=== PATIENT | male | born 1960 | race Caucasian/White ===

== ENCOUNTER 2016-10-02 14:23 | Emergency (ER) | payer OTHER ==
[~2016-10-02] VITALS: Ht 188 cm; Wt 93.4 kg
[~2016-10-02 14:23] MED LIST: AMOXICILLIN500 MG PO; VICODIN5-300 PO
[2016-10-02 14:27] VITALS: BP 182/77
[2016-10-02] MEDS ORDERED: ULTRAM50 M1 PO (15:03)
[2016-10-02] MEDS ORDERED: OXYCODONE HCL5 M1 PO (15:03)
[2016-10-02] MEDS ORDERED: BACLOFEN10 M1 PO (15:03)
[2016-10-02] MEDS ORDERED: GABAPENTIN300 M2 PO (15:03)
--- NOTE | 2016-10-02 15:04 | ED GENERAL ADULT ---
History of Present Illness General Chief Complaint: General Adult Stated Complaint: CHRONIC PAIN ALL OVER Source: patient, old records Exam Limitations: no limitations Vital Signs & Intake/Output Vital Signs & Intake/Output Vital Signs Date Time Temp Pulse Resp B/P Pulse O2 O2 Flow FiO2 Ox Delivery Rate 10/02 1427 98.3 91 18 182/77 99 Room Air Allergies Coded Allergies: Sulfa (Sulfonamide Antibiotics) (Severe, RASH 10/02/16) acetaminophen (Severe, NAUSEA 10/02/16) aspirin (Mild, UPSET STOMACH 10/02/16) Reconcile Medications Baclofen 10 MG TABLET 1-2 TAB PO TID PRN muscle strain Gabapentin 300 MG CAPSULE 1 CAP PO TID chronic pain Oxycodone HCl 5 MG TABLET 1 TAB PO Q6PRN PRN severe pain Tramadol HCl (Ultram) 50 MG TABLET 1-2 TAB PO Q6PRN PRN moderate pain Triage Note: 56 Y/O MALE C/O PAIN "ALL OVER - MY NECK, MY BACK". STATES HE HAD A LAPSE OF INSURANCE AND HAS BEEN UNABLE TO GET PAIN MEDICATIONS. HAS NOT TAKEN ANY MEDICATIONS FOR PAIN TODAY. Triage Nurses Notes Reviewed? yes Onset: Last week Duration: week(s):, continues in ED, waxing and waning Timing: recent history Injury Environment: home Severity: severe Modifying Factors: Worsens With: movement. HPI: Patient has had chronic back pain for many years. He reports having increasing neck and low back pain described as sharp on her to severe waxing and waning worse with movement turning bending and episodic tingling in the fingers and feet. He denies fever chills nausea vomiting diarrhea abdominal pain chest pain shortness breath headache dysuria rash bleeding change in bowel bladder habit trauma. Past History Travel History Traveled to [place] past 21 day No Medical History Any Pertinent Medical History? 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 No Review of Systems Review of Systems Constitutional: Reports: no symptoms. EENTM: Reports: no symptoms. Respiratory: Reports: no symptoms. Cardiovascular: Reports: no symptoms. GI: Reports: no symptoms. Genitourinary: Reports: no symptoms. Musculoskeletal: Reports: see HPI, back pain, neck pain. Skin: Reports: no symptoms. Neurological/Psychological: Reports: no symptoms. Hematologic/Endocrine: Reports: no symptoms. Immunologic/Allergic: Reports: no symptoms. All Other Systems: Reviewed and Negative Physical Exam Physical Exam General Appearance: well developed/nourished, alert, awake, anxious, moderate distress Head: atraumatic, normal appearance Eyes: Bilateral: normal appearance, PERRL, EOMI. Ears, Nose, Throat: normal pharynx, normal ENT inspection Neck: normal inspection, supple, full range of motion, no midline tenderness Respiratory: normal breath sounds, chest non-tender, no respiratory distress, quiet respiration, lungs clear Cardiovascular: regular rate/rhythm, normal peripheral pulses, norml femoral pulses equa Peripheral Pulses: 4+ carotid (R), 4+ carotid (L), 2+ radial (R), 2+ radial (L) Gastrointestinal: normal bowel sounds, soft, non-tender, no organomegaly Back: normal inspection, decreased range of motion, no vertebral tenderness Extremities: normal inspection, normal capillary refill, normal range of motion, no edema Neurologic/Psych: no motor/sensory deficits, awake, alert, oriented x 3, normal gait, normal mood/affect, 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 Skin: intact, normal color, warm/dry Lymphatic: no anterior cervical john Core Measures ACS in differential dx? No CVA/TIA Diagnosis: No Severe Sepsis Present: No Septic Shock Present: No Progress Differential Diagnoses I considered the following diagnoses in my evaluation of the patient: Chronic pain syndrome Plan of Care: analgesia, muscle relaxant Initial ED EKG: none Departure Departure Time of Disposition: 1501 Disposition: HOME OR SELF CARE Condition: Stable Clinical Impression Primary Impression: Chronic pain syndrome Referrals: DANA SARAVIA APRN (PCP/Family) Departure Forms: Customer Survey General Discharge Information Prescriptions: Current Visit Scripts Baclofen 1-2 TAB PO TID PRN muscle strain #30 TAB Tramadol HCl (Ultram) 1-2 TAB PO Q6PRN PRN moderate pain #30 TAB Gabapentin 1 CAP PO TID #50 CAP Oxycodone HCl 1 TAB PO Q6PRN PRN severe pain #15 TAB Critical Care Note Critical Care Note Critical Care Time: non-applicable
== END 2016-10-02 15:20 ==
LOC: ERH 14:23
DX: G89.4 Chronic pain syndrome (principal)

== ENCOUNTER 2016-10-05 07:01 | Emergency (ER) | payer OTHER ==
[~2016-10-05] VITALS: Ht 188 cm; Wt 94.3 kg
[~2016-10-05 07:01] MED LIST changes: +BACLOFEN10 M1 PO; +GABAPENTIN300 M2 PO; +OXYCODONE HCL5 M1 PO; +ULTRAM50 M1 PO
[2016-10-05 07:13] VITALS: BP 167/96
--- NOTE | 2016-10-05 07:21 | ED GENERAL ADULT ---
History of Present Illness General Chief Complaint: Low Back Pain/Injury Stated Complaint: BACK AND NECK PAIN BEING SEEN BY [facility] 10/10/16 Source: patient Exam Limitations: no limitations Vital Signs & Intake/Output Vital Signs & Intake/Output Vital Signs Date Time Temp Pulse Resp B/P Pulse O2 O2 Flow FiO2 Ox Delivery Rate 10/05 0713 98.0 91 16 167/96 99 Room Air Allergies Coded Allergies: Sulfa (Sulfonamide Antibiotics) (Severe, RASH 10/02/16) acetaminophen (Severe, NAUSEA 10/02/16) aspirin (Mild, UPSET STOMACH 10/02/16) Reconcile Medications Baclofen 10 MG TABLET 1-2 TAB PO TID PRN muscle strain Gabapentin 300 MG CAPSULE 1 CAP PO TID chronic pain Oxycodone HCl 5 MG TABLET 1 TAB PO Q6PRN PRN severe pain Tramadol HCl (Ultram) 50 MG TABLET 1-2 TAB PO Q6PRN PRN moderate pain Triage Note: 56 Y/O MALE C/O BACK PAIN. WAS SEEN IN ED FOR SAME 10/02/16 AND STATES HE RAN OUT OF THE OXYCODONE AND THE OTHER MEDS AREN'T WORKING. UNABLE TO SEE PCP FOR ANOTHER WEEK Triage Nurses Notes Reviewed? yes Onset: Abrupt Duration: week(s): Timing: recent history HPI: 10/05/16 56-year-old male presents to the emergency department for exacerbation of low back pain. The patient states she has a history of chronic low back pain and is in the process of getting follow-up. He is currently taking nonsteroidals and baclofen with minimal relief. He is requesting a prescription renewal for his analgesics. The onset of the pain has been abrupt, the duration has been for years. The severity is significant as his symptoms required to come to the emergency department for care. He has no associated fever or abdominal pain or other complaints. No abdominal pain. Past History Travel History Traveled to [place] past 21 day No Medical History Any Pertinent Medical History? 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 No Review of Systems Review of Systems Constitutional: Denies: fever. EENTM: Denies: visual changes. Respiratory: Denies: short of breath. Cardiovascular: Denies: chest pain. GI: Denies: abdominal pain. Genitourinary: Denies: dysuria. Musculoskeletal: Reports: back pain, neck pain. Skin: Denies: rash. Neurological/Psychological: Denies: paresthesia, weakness. Hematologic/Endocrine: Denies: bruising, bleeding. Physical Exam Physical Exam General Appearance: alert, awake, anxious, mild distress Head: atraumatic, normal appearance Eyes: Bilateral: normal appearance, PERRL, EOMI. Ears, Nose, Throat: normal pharynx, normal ENT inspection Neck: limited range of motion Respiratory: no respiratory distress Cardiovascular: regular rate/rhythm Peripheral Pulses: 4+ radial (R), 4+ radial (L) Back: decreased range of motion Extremities: normal inspection, no edema Neurologic/Psych: no motor/sensory deficits, awake, alert, oriented x 3 Skin: intact, normal color, warm/dry Core Measures ACS in differential dx? No CVA/TIA Diagnosis: No Severe Sepsis Present: No Septic Shock Present: No Progress Differential Diagnoses I considered the following diagnoses in my evaluation of the patient: [ Transverse myelitis, disc herniation, osteoarthritis, spondylosis, spondylolisthesis, epidural abscess, cauda equina syndrome] Plan of Care: Current Medications Sig/Teetee Start time Last Medication Dose Stop Time Status Admin Cyclobenzaprine HCl 10 MG ONCE ONE 10/05 0630 CAN (Flexeril 10MG Tab) 10/05 730 Ketorolac 60 MG ONCE ONE 10/05 0630 CAN Tromethamine 10/05 730 (Toradol) Initial ED EKG: none, rhythm Departure Departure Disposition: HOME OR SELF CARE Condition: Stable Clinical Impression Primary Impression: Back pain Referrals: DANA SARAVIA APRN (PCP/Family) Departure Forms: Customer Survey General Discharge Information Comments The patient was given a prescription for 12 Percocet. He will follow-up with his doctor as scheduled. Critical Care Note Critical Care Note Critical Care Time: non-applicable
[2016-10-05] MEDS ORDERED: PERCOCET 5-3251 EACH PO (07:41)
== END 2016-10-05 07:45 ==
LOC: ERH 07:01
DX: M54.5 Low back pain (principal)

== ENCOUNTER 2016-10-15 05:57 | Emergency (ER) | payer OTHER ==
[~2016-10-15] VITALS: Ht 188 cm; Wt 90.7 kg
[~2016-10-15 05:57] MED LIST changes: +PERCOCET 5-3251 EACH PO
[2016-10-15 06:21] VITALS: BP 169/85
--- NOTE | 2016-10-15 06:31 | ED NECK/BACK PAIN COMPLAINT ---
History of Present Illness General Chief Complaint: Neck/Upper Back Pain/Injury Stated Complaint: NECK AND LOWER BACK PAIN FOR FEW WEEKS Source: patient, old records Exam Limitations: no limitations Vital Signs & Intake/Output Vital Signs & Intake/Output Vital Signs Date Time Temp Pulse Resp B/P Pulse O2 O2 Flow FiO2 Ox Delivery Rate 10/15 0621 97.7 83 18 169/85 97 Room Air Allergies Coded Allergies: Sulfa (Sulfonamide Antibiotics) (Severe, RASH 10/02/16) acetaminophen (Severe, NAUSEA 10/02/16) aspirin (Mild, UPSET STOMACH 10/02/16) Reconcile Medications Baclofen 10 MG TABLET 1-2 TAB PO TID PRN muscle strain Gabapentin 300 MG CAPSULE 1 CAP PO TID chronic pain Oxycodone HCl 5 MG TABLET 1 TAB PO Q6PRN PRN severe pain Oxycodone HCl/Acetaminophen (Percocet 5-325 MG Tablet) 5 MG-325 MG TABLET 1 TAB PO BID PRN pain Tramadol HCl (Ultram) 50 MG TABLET 1-2 TAB PO Q6PRN PRN moderate pain Triage Note: PT TO TRIAGE FOR C/O PAIN TO BACK AND NECK. PT STATES HE WAS REFERRED TO PAIN MANAGEMENT BUT CANNOT MAKE AN APPOINTMENT DUE TO . PER PT "I AM HERE FOR SOMETHING TO HOLD ME OVER UNTIL THEN" Triage Nurses Notes Reviewed? yes HPI: Patient presents with 9 out of 10 pain to his neck and radiates down his arm. There is no weakness or numbness. The pain is constant. Patient has 3 herniated disks. Patient is waiting to see pain management. Patient was seen in the emergency department twice and by his regular physician once and he ran out of pain medications. Patient states that while taking the pain medication his pain is lower to a 5 out of 10. There are no fevers or chills. Patient presents requesting a refill for his pain medication. Past History Travel History Traveled to [place] past 21 day No Medical History Any Pertinent Medical History? 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 No Review of Systems Review of Systems Constitutional: Reports: no symptoms. Respiratory: Reports: no symptoms. Cardiovascular: Reports: no symptoms. Musculoskeletal: Reports: see HPI, neck pain. Neurological/Psychological: Reports: no symptoms. Physical Exam Physical Exam General Appearance: well developed/nourished, alert, awake, moderate distress Head: atraumatic Eyes: Bilateral: PERRL, EOMI. Neck: normal inspection, supple, limited range of motion Respiratory: normal breath sounds, chest non-tender, no respiratory distress, lungs clear Cardiovascular: regular rate/rhythm, normal peripheral pulses Extremities: non-tender Neurologic/Psych: no motor/sensory deficits, awake, alert, oriented x 3, normal gait, normal mood/affect Progress Differential Diagnosis: C spine injury, herniated disc Plan of Care: Refill meds Departure Departure Disposition: HOME OR SELF CARE Condition: Stable Clinical Impression Primary Impression: Neck pain Referrals: PETER ROMAN MD (PCP/Family) Additional Instructions: Follow-up with pain management Departure Forms: Customer Survey General Discharge Information Prescriptions: Current Visit Scripts Oxycodone HCl 1 CAP PO Q6P PRN PAIN #20 CAP
[2016-10-15] MEDS ORDERED: OXYCODONE HCL5 M2 PO (06:38)
== END 2016-10-15 06:50 ==
LOC: ERH 05:57
DX: M54.2 Cervicalgia (principal)

== ENCOUNTER 2016-10-30 12:55 | Emergency (ER) | payer OTHER ==
[~2016-10-30] VITALS: Ht 188 cm; Wt 89.8 kg
[~2016-10-30 12:55] MED LIST changes: +OXYCODONE HCL5 M2 PO
[2016-10-30 13:29] VITALS: BP 164/98
--- NOTE | 2016-10-30 14:20 | ED GENERAL ADULT ---
History of Present Illness General Chief Complaint: General Adult Stated Complaint: PAIN EVERYWHERE Source: patient, old records Exam Limitations: no limitations Vital Signs & Intake/Output Vital Signs & Intake/Output Vital Signs Date Time Temp Pulse Resp B/P Pulse O2 O2 Flow FiO2 Ox Delivery Rate 10/30 1329 98.7 88 18 164/98 98 Room Air Allergies Coded Allergies: Sulfa (Sulfonamide Antibiotics) (Severe, RASH 10/02/16) acetaminophen (Severe, NAUSEA 10/02/16) aspirin (Mild, UPSET STOMACH 10/02/16) Reconcile Medications Baclofen 10 MG TABLET 1-2 TAB PO TID PRN muscle strain Gabapentin 300 MG CAPSULE 1 CAP PO TID chronic pain Oxycodone HCl 5 MG CAPSULE 1 CAP PO Q6P PRN PAIN Oxycodone HCl 5 MG TABLET 1 TAB PO Q6PRN PRN severe pain Oxycodone HCl/Acetaminophen (Percocet 5-325 MG Tablet) 5 MG-325 MG TABLET 1 TAB PO BID PRN pain Tramadol HCl (Ultram) 50 MG TABLET 1-2 TAB PO Q6PRN PRN moderate pain Triage Note: PT TO ER REQUESTING PAIN MEDS, PT STATES THAT HE HAS CHRONIC PAIN ALL OVER AND THAT HIS PMD WON'T GIVE HIM ANY. Triage Nurses Notes Reviewed? yes Onset: Gradual Duration: constant Timing: remote history Injury Environment: home Severity: severe Severity Numbers: 10 HPI: Patient is a 56-year-old male with a past medical history of chronic pain who presents to emergency room with requests of pain medications for his symptoms. Patient has been evaluated on multiple occasions in [facility] emergency room for similar request in which narcotics have been administered patient did establish this month a primary care doctor who is also prescribed patient narcotics and tomorrow has a follow-up appointment with his primary care doctor- DR. ROMAN and in 2 days has a initial evaluation establishment with pain management Patient denies any new mechanism injury or new trauma (PEYMAN HO) Past History Travel History Traveled to [place] past 21 day No Medical History Any Pertinent Medical History? 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 No (PEYMAN HO) Review of Systems Review of Systems Constitutional: Reports: no symptoms. EENTM: Reports: no symptoms. Respiratory: Reports: no symptoms. Cardiovascular: Reports: no symptoms. GI: Reports: no symptoms. Genitourinary: Reports: no symptoms. Musculoskeletal: Reports: see HPI, back pain, joint pain, muscle pain. Skin: Reports: no symptoms. Neurological/Psychological: Reports: no symptoms. Hematologic/Endocrine: Reports: no symptoms. Immunologic/Allergic: Reports: no symptoms. All Other Systems: Reviewed and Negative (PEYMAN HO) Physical Exam Physical Exam General Appearance: no apparent distress, alert, comfortable Neurologic/Psych: no motor/sensory deficits, awake, alert, oriented x 3, normal gait Skin: intact, normal color, warm/dry Comments: Well-developed well-nourished no apparent distress. HEENT: Atraumatic, extraocular motion intact Neck: Supple, no lymphadenopathy, normal inspection, generalized point tenderness noted, decreased active range of motion noted Back: Normal inspection generalized point tenderness noted, decreased active range of motion noted Respiratory: No respiratory distress Extremities: No edema, full range of motion Neuro: Alert and oriented x3 Psych: Mood affect normal, normal memory normal judgment. Core Measures ACS in differential dx? 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 Patient states that he has acetaminophen allergy and NSAID allergy. Initial ED EKG: none (PEYMAN HO) Departure Departure Disposition: HOME OR SELF CARE Condition: Stable Clinical Impression Primary Impression: Chronic pain Referrals: PETER ROMAN MD (PCP/Family) Additional Instructions: As discussed continue home medications as directed. Begin heating the area for relief of symptoms 20 minutes every 2 hours. Follow-up with your establish primary care doctors point at tomorrow and follow-up with your pain management evaluation in 2 days. 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 I have also reviewed all the pertinent lab results and diagnostic results. I agree with the findings and the plan of care as documented in the PA's/THIOKOL OPERATOR's documentation. x I have reviewed the ED Record and agree with the PA's/THIOKOL OPERATOR's documentation. [] Additions or exceptions (if any) to the PAs/THIOKOL OPERATOR's note and plan are summarized below: [] (ROSMERY STANLEY,ARCADIO) Critical Care Note Critical Care Note Critical Care Time: non-applicable (PEYMAN HO)
== END 2016-10-30 14:41 ==
LOC: ERH 12:55
DX: G89.29 Other chronic pain (principal)
CPT/HCPCS: 99282